=== PATIENT | female | born 1950 | race Two or more races ===

== ENCOUNTER → 2016-06-29 | Day surgery (SDC) | payer MEDICARE, OTHER ==
--- NOTE | 2016-06-25 09:37 | Pre-Procedure Note/Attestation ---
Pre-Procedure Note/Attestation Complete Prior to Procedure Planned Procedure: right Procedure Narrative: 1. CATARACT EXTRACTION WITH PHACO AND PC IOL IMPLANTATION, RIGHT EYE. Indications for Procedure Pre-Operative Diagnosis: 1. CATARACT , RIGHT EYE. Attestation I attest that I discussed the nature of the procedure; its benefits; risks and complications; and alternatives (and the risks and benefits of such alternatives ), prior to the procedure, with the patient (or the patient's legal players club representative). I attest that, if there was a reasonable possibility of needing a blood transfusion, the patient (or the patient's legal players club representative) was given the [facility] standardized written summary, pursuant to the Delmer Talat Blood Safety Act ([place] Health and Safety Code # 1645, as amended). I attest that I re-evaluated the patient just prior to the surgery and that there has been no change in the patient's H&P, except as documented below: CRISTÓBAL QIU Jun 25, 2016 09:37
[~2016-06-29] VITALS: Ht 157.5 cm; Wt 57.2 kg
[2016-06-29] VITALS (9 sets, daily range): BP systolic 99–129; BP diastolic 58–73
[~2016-06-29] MED LIST: ATORVASTATIN CA20 MG ORAL; Akten 3.5% 1ml Btl ONE; BSS 15ml BTL ONE; BSS 500ml btl ONE; CALCIUM500 M2 PO; Dexamethasone 4mg/ml vial ONE; Diclofenac Sod 0.1% Op Soln ONE; EPINEPHrine 1mg/1ml Amp ONE; FISH OIL 1,2001 EAC2 PO; Gatifloxacin Opth Solution 0.5% ONE; LR 1000ml 1,000 ML IVLG SCH; LR 1000ml ONE; Lidocaine 1% MPF 10mg/ml 5ml ONE; Maxitrol Opth Oint 3.5gm ONE; Midazolam 2mg/2ml Inj ONE; NS Irrig 1000ml ONE; Phenylephrine 10% Opth Soln 5ml ONE; Povidone-Iodine 5% opth solution ONE; Propofol 10mg/ml 20ml IV ONE; Sodium Hyaluronate 10 mg/ml 0.85ml ONE; Sterile Water Irrig 1000ml IRRIG ONE; VITAMIN D1000 UNI1 ORAL; VITAMIN E400 INTLU ORAL; acetaZOLAMIDE 125mg tab ORAL ONE; fentaNYL 100 mcg/2 mL IV ONE; fentaNYL 100 mcg/2 mL IV PRN
[2016-06-29] MEDS: Gatifloxacin Opth Solution 0.5% RIGHT EYE SCH ×3 (06:17→06:40)
[2016-06-29] MEDS: Tropicamide 1% Opth Soln RIGHT EYE SCH ×3 (06:17→06:40)
[2016-06-29] MEDS: Diclofenac Sod 0.1% Op Soln RIGHT EYE SCH ×3 (06:18→06:40)
[2016-06-29] MEDS: Phenylephrine 10% Opth Soln 5ml RIGHT EYE SCH ×3 (06:18→06:40)
[2016-06-29] MEDS: Akten 3.5% 1ml Btl RIGHT EYE SCH ×3 (06:18→06:40)
--- NOTE | 2016-06-29 07:37 | Anethesia Preoperative Eval ---
Anesthesia Pre-op PMH/ROS General Date of Evaluation: Jun 29, 2016 Time of Evaluation: 07:08 Anesthesiologist: Fiona ASA Score: ASA 2 Mallampati Score Class I : Soft palate, uvula, fauces, pillars visible Class II: Soft palate, uvula, fauces visible Class III: Soft palate, base of uvula visible Class IV: Only hard plate visible Mallampati Classification: Class II Surgeon: Carlton Diagnosis: R eye cataract Surgical Procedure: R eye cataract extraction with IOL Anesthesia History: none Family History: no anesthesia problems Allergies: Coded Allergies: AMOXICILLIN (Verified Allergy, Severe, 06/28/16) ITCHING Medications: see eMAR Past Medical History Cardiovascular: Denies: CAD, HTN, [place], arrhythmia, other, valve dz Pulmonary: Denies: COPD, TOMER, asthma, other Gastrointestinal/Genitourinary: Reports: GERD - mild Neurologic/Psychiatric: Denies: CVA, TIA, dementia, depression/anxiety, other Endocrine: Reports: DM - Elevated H1C Hb , Denies: hypothyroidism, other, steroids HEENT: Reports: cataract (R), Denies: [place] (L), [place] (R), cataract (L), glaucoma, other Hematology/Immune: Denies: DVT, anemia, bleeding disorder, other Musculoskeletal/Integumentary: Denies: DDD, DJD, OA, RA, edema, other PMH Narrative: R colectomy for CA polyp PSxH Narrative: As above Anesthesia Pre-op Phys. Exam Physician Exam Last Vital Signs Date Time Temp Pulse Resp B/P Pulse Ox O2 Delivery O2 Flow Rate FiO2 06/29/16 06:21 97.6 75 18 129/73 96 Room Air Constitutional: NAD Neurologic: CN 2-12 intact Cardiovascular: RRR, no M/R/G Respiratory: CTA Gastrointestinal: S/NT/ND Airway Exam Mallampati Score: Class II MO: full Neck: flexible ROM: full Teeth: intact Dentures: no lower, no upper Anesthesia Pre-op A/P Labs see chart Studies Pre-op Studies: EKG - NSR Risk Assessment & Plan Assessment: ASA 2 Plan: MAC Status Change Before Surgery: No Pre-Antibiotics Drug: none EMELINA DIALLO M.D. Jun 29, 2016 07:37
--- NOTE | 2016-06-29 07:57 | Brief Operative Note ---
Immediate Post Operative Note Operative Note Chief Complaint: Blurry vision, difficulty driving and reading, right eye Pre-op Diagnosis: 1. CATARACT , RIGHT EYE. Procedure: Cataract extraction with phaco and PC IOL implantation, right eye Post-op Diagnosis: same as pre-op Surgeon: Cristóbal Vincent MD Medicaid Billing Specialist: None Additional Surgeons: None Anesthesiologist: Dr. Lai Anesthesia: MAC Specimen: none Complications: none Condition: stable Estimated Blood Loss: none Drains: none Implant(s) used?: Yes - Monofocal PC IOL implanted in the right eye without complication CRISTÓBAL VINCENT Jun 29, 2016 07:57
--- NOTE | 2016-06-29 08:19 | Immediate Post-Op Evaluation ---
Immediate Post-Op Evalulation Immediate Post-Op Evalulation Procedure: R eye cataract extration with IOL Date of Evaluation: Jun 29, 2016 Time of Evaluation: 07:56 IV Fluids: 200 Blood Products: none Estimated Blood Loss: none Urinary Output: none Blood Pressure Systolic: 116 Blood Pressure Diastolic: 52 Pulse Rate: 72 Respiratory Rate: 20 O2 Sat by Pulse Oximetry: 99 Temperature (Fahrenheit): 97.4 Pain Score (1-10): 1 Nausea: No Vomiting: No Complications none Patient Status: awake, patent, none Hydration Status: adequate EMELINA DIALLO M.D. Jun 29, 2016 08:19
--- NOTE | 2016-06-29 09:26 | 48 Hour Post Anesthesia Eval ---
Post Anesthesia Evaluation Procedure: R eye cataract extration with IOL Date of Evaluation: Jun 29, 2016 Time of Evaluation: 09:24 Blood Pressure Systolic: 124 0: 58 Pulse Rate: 74 Respiratory Rate: 18 Temperature (Fahrenheit): 97.6 O2 Sat by Pulse Oximetry: 98 Airway: patent Nausea: No Vomiting: No Pain Intensity: 1 Hydration Status: adequate Cardiopulmonary Status: stable Mental Status/LOC: patient returned to baseline Follow-up Care/Observations: n/a Post-Anesthesia Complications: none Follow-up care needed: ready to discharge EMELINA DIALLO M.D. Jun 29, 2016 09:26
--- NOTE | 2016-06-29 17:49 | Discharge Summary ---
DATE OF ADMISSION: 06/29/2016 DATE OF DISCHARGE: 06/29/2016 REASON FOR HOSPITALIZATION: Cataract right eye. SURGERY PERFORMED: Cataract extraction with phacoemulsification and posterior chamber intraocular lens implantation in the right eye. CONDITION IN THE HOSPITAL: The patient tolerated the surgery without complications. DISCHARGE CONDITION: The patient was stable at discharge. DISCHARGE MEDICATIONS: 1. Prednisolone 1% q.i.d., right eye. 2. Vigamox eye drops one drop q.i.d., right eye. 3. Ilevro eye drops one drop a day in the right eye. POSTOPERATIVE ORDERS: The patient has to rest at home, no bending, no lifting. No watching TV tonight. Postoperative Followup: The patient will be followed in my office tomorrow morning at 6:30 a.m. Mike Vincent M.D. DR: Teresa JOB#: [id number] CC:
--- NOTE | 2016-06-29 17:49 | Operative Note - Dictated ---
DATE OF OPERATION: 06/29/2016 FACILITY: [facility]. SURGEON: Mike Vincent M.D. FIGURE CLERK: None. ANESTHESIOLOGIST: Ru Jaimes M.D. ANESTHESIA: Monitored anesthesia care (MAC). PREOPERATIVE DIAGNOSIS: Cataract of the right eye. POSTOPERATIVE DIAGNOSIS: Cataract of the right eye. SURGERY PERFORMED: Cataract extraction with phacoemulsification and posterior chamber intraocular lens implantation in the right eye. INDICATION FOR SURGERY: The patient is a 66-year-old lady with history of hypothyroidism, osteopenia, and hypercholesterolemia. She is taking for treatment of hypercholesterolemia, calcium and vitamin D and also is taking levothyroxine for hypothyroidism as well. She has had polypectomy plus colectomy. She has had ovariectomy as well. She is complaining of blurry vision in the right eye. On examination of the right eye, the cornea is clear. Anterior chamber is clean and quiet. The pupillary reflex is normal. There is no RAPD. She has 3+ nuclear sclerosis and 2+ cortical cataract in the right eye. On examination of the fundus, the macula and optic discs are within normal limits and peripheral retina is flat. To improve her vision in the right eye, the cataract has to be removed and posterior chamber intraocular lens has to be implanted. INFORMED CONSENT: The nature of the surgery, risks, benefits, alternatives, and potential complications were explained in detail to the patient. The potential complications including, but not limited to bleeding, infection, posterior capsular rupture, lens subluxation, flat anterior chamber, iris prolapse, uveitis, corneal edema, macular edema, endophthalmitis, retinal detachment, loss of vision, and even loss of the eye were all explained in detail to the patient. The patient voiced understanding and accepted all the complications. The alternatives including accommodating lens, multifocal lens, toric lens, and conventional cataract surgery with limbal relaxing incision for treatment of astigmatism were all explained in detail to the patient. The patient voiced understanding. The patient elected to have only conventional cataract surgery in the right eye. Then, she signed the consent form, which is in the chart. DESCRIPTION OF SURGERY AND FINDINGS: Following that, the patient was taken to the operation room in a stable condition. Lidocaine gel, Akten 3.5% were applied to the conjunctiva of the right eye. IV sedation was given by the anesthesiologist, Dr. Jaimes. After adequate anesthesia sedation has been achieved, the right eye was prepped and draped in sterile fashion for intraocular surgery. Following that, a speculum was placed in the right eye. Following that, with a Super Sharp knife a clear corneal side port was created. Following that, 1% lidocaine without preservatives (MPF) was injected into the anterior chamber. The viscoelastic agent, Healon was injected into the anterior chamber. Following that, using a 2.8 mm keratome, a clear corneal temporal keratotomy was performed. Viscoelastic agent was injected into the anterior chamber again. Following that, an anterior capsulotomy was performed in the fashion of capsulorrhexis beautifully. Following that, viscoelastic was removed from the anterior chamber. Following that, with balanced salt solution hydrodissection and hydrodelineation was performed and the nucleus was freed. Following that, using the phacoemulsification machine in the fashion of horizontal chop, the nucleus was removed in toto. Following that, cortical material was removed from the capsular bag using irrigation aspiration unit. Following that, the capsular bag was polished. Following that, the capsular bag was filled with viscoelastic agent Healon. Following that, a +26.5 diopter ZCB00 foldable PC IOL with serial number [id number] was injected into the capsular bag. Using a Sinskey hook, the lens was manipulated and put in the proper position. Following that, viscoelastic agent was removed from the anterior posterior part of the lens and anterior chamber was filled with balanced salt solution. The wound was hydrated with balanced salt solution. The wound was checked for leakage and there was no leakage. Vigamox eye drops were applied to the conjunctiva of the right eye. The patient tolerated the surgery without complications. At the end of surgery, the eye was patched with a clear sterile fenestrated shield Following that, the patient was transferred to the recovery room. In the recovery room, 125 mg Diamox was given by mouth stat. Postoperative orders and directions were given to the patient. The patient will be discharged home upon stabilization. The patient will be followed in my office tomorrow morning at 6:30 a.m. Mike Vincnet M.D. DR: Teresa JOB#: [id number] CC:
== END | disposition home or self-care (01) ==
LOC: SUR 05:52
DX: H25.11 Age-related nuclear cataract, right eye (principal); H25.011 Cortical age-related cataract, right eye; E03.9 Hypothyroidism, unspecified; M85.80 Other specified disorders of bone density and structure, unspecified site; E78.00 Pure hypercholesterolemia, unspecified; K21.9 Gastro-esophageal reflux disease without esophagitis; E11.9 Type 2 diabetes mellitus without complications; Z86.010 Personal history of colon polyps; Z90.49 Acquired absence of other specified parts of digestive tract; Z88.1 Allergy status to other antibiotic agents
CPT/HCPCS: 66984; J0171; J1100; J2250; J2704; J3010; J7120; V2632; 94003; 94150

== ENCOUNTER → 2016-07-20 | Day surgery (SDC) | payer MEDICARE, OTHER ==
--- NOTE | 2016-07-16 15:57 | Pre-Procedure Note/Attestation ---
Pre-Procedure Note/Attestation Complete Prior to Procedure Planned Procedure: left Procedure Narrative: 1.CATARACT EXTRACTION WITH PHACO AND PC IOL IMPLANTATION, LEFT EYE. Indications for Procedure Pre-Operative Diagnosis: 1. CATARACT, LEFT EYE. Attestation I attest that I discussed the nature of the procedure; its benefits; risks and complications; and alternatives (and the risks and benefits of such alternatives ), prior to the procedure, with the patient (or the patient's legal publications sales representative). I attest that, if there was a reasonable possibility of needing a blood transfusion, the patient (or the patient's legal publications sales representative) was given the [facility] standardized written summary, pursuant to the Delmer Talat Blood Safety Act ([place] Health and Safety Code # 1645, as amended). I attest that I re-evaluated the patient just prior to the surgery and that there has been no change in the patient's H&P, except as documented below: CRISTÓBAL QIU Jul 16, 2016 15:57
[~2016-07-20] VITALS: Ht 157.5 cm; Wt 58.1 kg
[2016-07-20] VITALS (8 sets, daily range): BP systolic 109–140; BP diastolic 68–84
[~2016-07-20] MED LIST changes: +DiphenhydrAMINE 50mg/ml Inj IVP PRN; +Labetalol 5mg/ml 20ml vial IV PRN; -Maxitrol Opth Oint 3.5gm ONE; -Midazolam 2mg/2ml Inj ONE; -Propofol 10mg/ml 20ml IV ONE; +Tropicamide 1% Opth Soln ONE; -fentaNYL 100 mcg/2 mL IV ONE; -fentaNYL 100 mcg/2 mL IV PRN
[2016-07-20] MEDS: Akten 3.5% 1ml Btl LEFT EYE SCH ×3 (07:41→08:05)
[2016-07-20] MEDS: Diclofenac Sod 0.1% Op Soln LEFT EYE SCH ×3 (07:41→08:05)
[2016-07-20] MEDS: Tropicamide 1% Opth Soln LEFT EYE SCH ×3 (07:41→08:05)
[2016-07-20] MEDS: Phenylephrine 10% Opth Soln 5ml LEFT EYE SCH ×3 (07:41→08:05)
[2016-07-20] MEDS: Gatifloxacin Opth Solution 0.5% LEFT EYE SCH ×3 (07:42→08:05)
--- NOTE | 2016-07-20 07:46 | Anethesia Preoperative Eval ---
Anesthesia Pre-op PMH/ROS General Date of Evaluation: Jul 20, 2016 Anesthesiologist: Kevin ASA Score: ASA 2 Mallampati Score Class I : Soft palate, uvula, fauces, pillars visible Class II: Soft palate, uvula, fauces visible Class III: Soft palate, base of uvula visible Class IV: Only hard plate visible Mallampati Classification: Class II Surgeon: Carlton Diagnosis: Left cataract Surgical Procedure: Left cataract extraction with IOL Anesthesia History: none Family History: no anesthesia problems Allergies: Coded Allergies: AMOXICILLIN (Verified Allergy, Severe, 06/28/16) ITCHING Medications: see eMAR Past Medical History Cardiovascular: Reports: HTN, other - HLD, Denies: CAD, [place], arrhythmia, valve dz Pulmonary: Denies: COPD, TOMER, asthma, other Gastrointestinal/Genitourinary: Reports: GERD, Denies: CRI, ESRD, other Neurologic/Psychiatric: Denies: CVA, TIA, dementia, depression/anxiety, other Endocrine: Denies: DM, hypothyroidism, other, steroids HEENT: Denies: [place] (L), [place] (R), cataract (L), cataract (R), glaucoma, other Hematology/Immune: Denies: DVT, anemia, bleeding disorder, other Musculoskeletal/Integumentary: Denies: DDD, DJD, OA, RA, edema, other PSxH Narrative: colon sx, right cataract Anesthesia Pre-op Phys. Exam Physician Exam see chart Constitutional: NAD Cardiovascular: RRR Respiratory: CTA Airway Exam Mallampati Score: Class II Anesthesia Pre-op A/P Labs see chart Studies Pre-op Studies: EKG - sr Risk Assessment & Plan Assessment: ASA II Plan: MAC Status Change Before Surgery: No Pre-Antibiotics Drug: N/A BILLY BERKOWITZ M.D. Jul 20, 2016 07:46
--- NOTE | 2016-07-20 07:47 | 48 Hour Post Anesthesia Eval ---
Post Anesthesia Evaluation Procedure: Left cataract extraction with IOL Date of Evaluation: Jul 20, 2016 Blood Pressure Systolic: 131 0: 81 Pulse Rate: 82 Respiratory Rate: 16 O2 Sat by Pulse Oximetry: 99 Airway: patent Nausea: No Vomiting: No Pain Intensity: 0 Hydration Status: adequate Cardiopulmonary Status: at baseline Mental Status/LOC: patient returned to baseline Post-Anesthesia Complications: 0 Follow-up care needed: ready to discharge BILLY BERKOWITZ M.D. Jul 20, 2016 07:47
--- NOTE | 2016-07-20 07:47 | Immediate Post-Op Evaluation ---
Immediate Post-Op Evalulation Immediate Post-Op Evalulation Procedure: Left cataract extraction with IOL Date of Evaluation: Jul 20, 2016 Time of Evaluation: 09:09 IV Fluids: 500 Blood Products: 0 Estimated Blood Loss: 0 Urinary Output: 0 Blood Pressure Systolic: 135 Blood Pressure Diastolic: 84 Pulse Rate: 84 Respiratory Rate: 16 O2 Sat by Pulse Oximetry: 99 Temperature (Fahrenheit): 97.2 Pain Score (1-10): 0 Nausea: No Vomiting: No Complications 0 Patient Status: awake, reacts, patent, none Hydration Status: adequate Drug: N/A BILLY BERKOWITZ M.D. Jul 20, 2016 07:47
[2016-07-20 08:29] LABS: EOSINOPHILS % (AUTO) 1.6 % (0.0-3.0); LYMPHOCYTES % (AUTO) 42.4 % (20.0-45.0); MEAN CORPUSCULAR HEMOGLOBIN 30.7 PG (27.0-31.0); MEAN CORPUSCULAR HGB CONC 33.9 G/DL (32.0-36.0); MEAN CORPUSCULAR VOLUME 91 FL (80-99); MEAN PLATELET VOLUME 6.8 FL (6.5-10.1); PLATELET COUNT 223 K/UL (150-450); RED BLOOD COUNT 4.34 M/UL (4.20-5.40); RED CELL DISTRIBUTION WIDTH 10.8 % (11.6-14.8)
[2016-07-20 08:36] LABS: ANION GAP 15 (5-15); CALCIUM 9.4 mg/dL (8.6-10.2); CARBON DIOXIDE 24 mEQ/L (20-30); CHLORIDE 98 mEQ/L (98-107); CREATININE 0.9 mg/dL (0.5-0.9); GLOMERULAR FILTRATION RATE > 60 mL/min (>60); HEMOLYSIS 6; POTASSIUM 4.2 mEQ/L (3.4-4.9); SODIUM 137 mEQ/L (135-145)
--- NOTE | 2016-07-20 09:10 | Brief Operative Note ---
Immediate Post Operative Note Operative Note Chief Complaint: Blurry vision, left eye, difficulty driving and reading Pre-op Diagnosis: 1. CATARACT, LEFT EYE. Procedure: Cataract extraction with phaco and PC IOL implantation, left eye Post-op Diagnosis: same as pre-op Surgeon: Cristóbal Vincent MD. Senior Principal: None Additional Surgeons: None Anesthesiologist: Dr. Brown Anesthesia: MAC Specimen: none Complications: none Condition: stable Estimated Blood Loss: none Drains: none Implant(s) used?: Yes - Monovision, PC IOl implanted in the left eye without complication in the left eye CRISTÓBAL VINCENT Jul 20, 2016 09:10
--- NOTE | 2016-07-20 10:58 | Pre-op HX & Phy Repo 2 SIG ---
DATE OF ADMISSION: 07/20/2016 PRESURGICAL INTERNAL MEDICINE HISTORY AND PHYSICAL: REASON FOR EVALUATION: I was asked by Dr. Mike Vincent, to see this 66-year-old female, who is going for elective surgery on the left eye. The patient has a cataract left eye. Please see the Dr. Vincent H and P. The patient was evaluated. Chart was reviewed. PAST MEDICAL HISTORY/REVIEW OF SYSTEMS: Remarkable for denied history of hypertension, stroke, or seizures. No history of heart attack or chest pain. Denies history of diabetes or thyroid problem. History of renal failure . Denies history of respiratory problem, asthma, or bronchitis. Denies history of GI bleeding. The patient has a history of colon polyps, surgery, and colonoscopy. PAST SURGICAL HISTORY: Cataract left eye three weeks ago and history of colon polyps removed in 2014. FAMILY HISTORY: Mother had hypertension. ALLERGIES: To amoxicilli/n developed rashes and itching. MEDICATIONS: Includes atorvastatin, calcium supplement, vitamin D 2000 units a day, fish oil, and vitamin D. HABITS: Denies history of tobacco or alcohol use. No street drugs. PHYSICAL EXAMINATION: GENERAL: Alert, well-developed, well-nourished female, in her 60s. BMI . VITAL SIGNS: Blood pressure 136/77, temperature 97.2, pulse 79, O2 saturation 99% on room air. SKIN: Dry and clear. No diaphoresis. No cyanosis. LYMPH NODES: Not enlarged. HEENT: Head, normocephalic. Ears, clear. Eyes, full description per Dr. Mike Vincent. Mouth, clear and warm moist. No dentures. LYMPH NODES: Not enlarged. NECK: Supple. No jugular venous distention. Carotids are 2+. Trachea midline. CHEST: No deformity or asymmetry. LUNGS: Clear to auscultation and percussion. No rales or rhonchi. No wheezing. HEART: Sinus rhythm. No ectopy. No murmur. No S3 or S4. ABDOMEN: Soft. No palpable mass. No rebound. EXTREMITIES: No edema. No varices. No calf tenderness. GENITOURINARY TRACT: No dysuria. No CVA tenderness. No tremor. No nystagmus. LABORATORY AND DIAGNOSTIC DATA: Electrocardiogram, normal sinus rhythm, normal ECG. The patient did not eat or drink from last night. Laboratory pending. IMPRESSION: 1. Cataract, right eye. 2. Gastroesophageal reflux disease. 3. History of colon polyps. 4. Hypertension not treated. 5. Hyperlipidemia. 6. Osteoporosis. PLAN: Cataract extraction, left eye with intraocular lens implant per Dr. Mike Vincent. Conclusion, the patient is alert. Vital signs stable. ECG is normal. The patient did not eat or drink from last night. The patient's condition optimized for surgery. Thank you very much, Dr. Vincent, for privilege to participate presurgical care of this interesting patient. Nehal Jc M.D. DR: NICOLE JOB#: [id number] CC:
--- NOTE | 2016-07-21 04:44 | Operative Note - PDOC ---
Operative Note Operative Note Operative Report DATE OF OPERATION: 07/20/2016 FACILITY: [facility] SURGEON: Mike Vincent MD. BUSH HOG OPERATOR: None ANESTHESIOLOGIST: Dr. Brown ANESTHESIA: Monitored anesthesia care (MAC) PREOPERATIVE DIAGNOSES: 1. Cataract, left eye. 2. Astigmatism, left eye. POSTOPERATIVE DIAGNOSES: 1. Cataract, left eye. 2. Astigmatism, left eye. SURGERY PERFORMED: 1. Cataract extraction with phacoemulsification and posteriro chamber intraocular lens implantation in the left eye. 2. Limbal relaxing incision (I.R.I) left. INDICATION FOR SURGERY: The patient is an 66- year-old lady with history of hypothyroidism, and hyperchlosterolemia. She is taking simvastatin, calcium and vitamine D, levothyroxin. She has had polypectomy plus colectomyand ovariectomy.high blood pressure. He has some back pain and osteoarthritis as well. He is taking Flomax for BPH. Diovan for high blood pressure. Plavix, aspirin and Lipitor for hypercholesterolemia. The patient has coronary artery disease. She is complaining of blurry vision in the left eye. On examination of the Left eye., the cornea is clear. Anterior chamber is clean and quiet, but is shallow. The pupillary reflex is normal. There is no RAPD. There is 3+ nuclear sclerosis and 2+ cortical cataract. The fundus shows normal optic disc, normal macula, and periphery retina is flat. To improve his vision int he left eye, the cataract has to be removed and posterior chamber intraocular lens has to be implanted. INFORMED CONSENT: The nature of the surgery, risks benefits, alternatives, and potential complications were explained all in detail to the patient. The potential complications including. But not limited to bleeding, infection, posterior capsular rupture,lens subluxation, flat anterior chamber,iris prolapse , uveitis, corneal edema, macular edema, endophthalmitis, retinal detachment, loss of vision and even loss of the eye were all explained in detail to the patient. The patient voiced understanding and accepted all the complications.The alternatives including accommodating lens, multifocal lens, toric lens, and conventional cataract surgery with limbal relaxing incision (LRI ) for treatment of astigmatism were all explained in detail to the patient who voiced understanding. The patient elected to have cataract surgery with insertion of the multifocal lens and limbal relaxing incision for astigmatism. Then, he signed the consent from,which is in the chart. DESCRIPTION OF SURGERY AND FINDINGS: Following hat, the patient was tAken to the operation room in a stable condition. Lidocaine gel Akten 3.5% were applied to the conjuctiva of the left eye. Anesthesia was given by the anesthesiologist , Dr. Lai. After adequate anesthesia and sedation had been achieved, the left eye was prepped and draped in the usual and sterile fashion for intraocular surgery.Following that, a speculum was placed in the left eye. Following that, before the patient was taken to the operation room, the 180 and 90 meridian of the cornea was marked. In the operation room, using a corneal marker and marking pen, the steep meridian of the cornea was marked. Following that, using a hal knife, two parallel incisions was placed on the steep meridian of the cornea to treat the patients astigmatism. Following that, using a super sharp knife, a clear corneal side port was created. Following that 1% lidocaine without preservative (MPF) was injected into the anterior chamber.Viscoelastic agent Healon was injected into the anterior chamber. Following that, a clear corneal temporal keratotomy was performed with a 2.8 mm keratome. Following that, a clear fresh viscoelastic agent was injected into the anterior chamber again. Under the viscoelastic agent, an anterior capsulotomy was performed in the fashion of capsulorrhexis beautifully. Following that viscoelastic agent was removed from the anterior chamber. Following that, using a balanced salt solution hydrodissection and hydrodelineation was performed and the nucleus was freed. Following that, the viscoelastic agent was injected into the anterior chamber again to protect the endothelium of the cornea. Following that, using phacoemulsification machine inthe fashion of horizontal chop, the nucleus was removed in toto. Following that, the cortical material was removed from the capsular bag with irrigation aspiration unit and the capsular bag was polished.Following that, the capsular bag was filled with viscoelastic agent. Following that, a+25.0 diopter , ZCB00 foldable PCIOL with serial [id number] was injected into the capsular bag. Using a Sinskey hook, the lens was manipulated within the proper position.Following that, viscoelastic agent was removed from the anterior and posterior part of the lens.The anterior chamber was filled with balanced salt solution. Following that, the wound was hydrated with balanced salt solution and the wound was checked for leakage. There was no leakage. Following that, the wound was hydrated and the wound was checked for leakage. There was no leakage. Following that, Vigamox eye drops were applied to the conjunctiva of the left eye. The patient tolerated the surgery without complications. At the end of the surgery, the eye was patched with a clear sterile fenestrated shield. Following that, the patient was transferred to the recovery room. In the recovery room, 125mg Diamox was given by mouth stat. Postoperative orders and directions were given to the patient. The patient will be discharged home upon stabilization. The patient will be followed in my office tomorrow morning at 7 o 'clock. MD LAZARUS Salgado JOHN Jul 21, 2016 04:44
--- NOTE | 2016-07-27 16:27 | Discharge Summary ---
Discharge Summary Discharge Summary Discharge Summary DATE OF ADMISSION:07/20/2016 DATE OF DISCHARGE:07/20/2016 REASON FOR HOSPITALIZATION:Cataract, left eye SURGERY PERFORMED: Cataract extraction with phaco and PC IOL implantation, left eye CONDITION IN THE HOSPITAL:The patient tolerated the surgery without complications. DISCHARGE CONDITION: The patient was stable at discharge. DISCHARGE MEDICATIONS: 1. Vigamox eye drops one drop q.i.d, 2. Prednisolone one drop q.i.d, 3. Ilevro eye drop, one drop q.d. POSTOPERATIVE ORDERS: The patient has to rest at home. No bending, No lifting, No watching Television tonight. POSTOPERATIVE FOLLOW UP: The patient will be followed in my office tomorrow morning at 7 o'clock. CRISTÓBAL QIU Jul 27, 2016 16:27
== END | disposition home or self-care (01) ==
LOC: SUR 07:12
DX: H25.12 Age-related nuclear cataract, left eye (principal); H25.012 Cortical age-related cataract, left eye; H52.202 Unspecified astigmatism, left eye; K21.9 Gastro-esophageal reflux disease without esophagitis; I10 Essential (primary) hypertension; E78.5 Hyperlipidemia, unspecified; E03.9 Hypothyroidism, unspecified; M81.0 Age-related osteoporosis without current pathological fracture; Z86.010 Personal history of colon polyps; Z88.1 Allergy status to other antibiotic agents
CPT/HCPCS: 36415; 66984; 80048; 85025; J0171; J1100; J1200; J2405; J7120; V2632; 94003; 94150